=== PATIENT | female | born 1935 | race African-American/Black ===

== ENCOUNTER → 2016-07-30 | Outpatient (CLI) | payer OTHER ==
[2015-09-03 10:10] VITALS: BP 176/74
--- NOTE | 2016-07-30 12:20 | CT ---
HISTORY: Hematuria, left flank pain Study: CT abdomen pelvis without contrast Comparison: None Technique: Axial non contrast images with coronal and sagittal reformats. Dose reduction procedures were used with MA/kv adjusted for body size. Findings: The lung bases are clear. The liver is normal in size and configuration. Benign calcified granulomas are present. In the dome of the right lobe of the liver there is a 2.2 x 2.1 centimeter lesion of l ow attenuation which is of uncertain etiology and significance. Hepatic protocol CT with and without contrast is recommended for further evaluation. No opaque stones are visible within the gallbladder . The spleen, adrenal glands, and pancreas are within normal limits to the limitations of an unenhan nighat examination. The kidneys are unobstructed. There is a 4 millimeter nonobstructing right midpole renal calculus present. No left renal calculi are identified. No ureteral calculi are identified. No intraperitoneal or retroperitoneal lymphadenopathy of significance is identified. There are no find ings suggestive of diverticulitis or colitis. The appendix is not identified with absolute certainty however there are no secondary signs of appendicitis present. Examination of the pelvis demonstrate d no evidence for pelvic masses, pelvic fluid, or pelvic lymphadenopathy. No bladder abnormality is identified. No lytic or blastic skeletal lesions are identified. IMPRESSION: 5 millimeter nonobstructing right midpole renal calculus No evidence for obstructing ureteral calculi. 2.2 x 2.1 centimeter lesion in the dome of the right lobe of the liver which will require further ev aluation with hepatic protocol CT with and without contrast. Reported By:
== END ==
LOC: RAD 10:34
PROVIDERS: ATTEND Internal Medicine
DX: R10.84 Generalized abdominal pain (principal); R31.9 Hematuria, unspecified; Z87.448 Personal history of other diseases of urinary system
CPT/HCPCS: 74176

== ENCOUNTER → 2016-08-31 | Outpatient (CLI) | payer OTHER ==
[2015-09-03 10:10] VITALS: BP 176/74
[~2016-08-31] MED LIST: NS 100 ML IV 0 ML IV ONE
[2016-08-31 09:44] LABS: CREATININE 0.6 mg/dL (0.55-1.02)
== END ==
LOC: RAD 09:06
PROVIDERS: ATTEND Internal Medicine
DX: R93.5 Abnormal findings on diagnostic imaging of other abdominal regions, including retroperitoneum (principal)
CPT/HCPCS: 36415; 82565; 84520

== ENCOUNTER → 2016-09-02 | Outpatient (CLI) | payer OTHER ==
[2015-09-03 10:10] VITALS: BP 176/74
--- NOTE | 2016-09-03 09:05 | MRI ---
MRI OF THE ABDOMEN WITHOUT AND WITH IV CONTRAST Clinical indication: Right liver lesion Procedure: Multiplanar multi sequence MRI of the abdomen were obtained with and without the administ ration of intravenous contrast according to standard departmental protocol. Contrast: 15 cc of Omniscan. Comparisons: CT 07/30/2016 Findings: MRI of the abdomen without contrast: No significant iron or fat deposition in the liver or spleen. N o significant ascites. MRI of the abdomen with contrast: Liver and spleen are normal in appearance. Lesion in the right lo be of liver testis peripheral nodular enhancement with progressive filling in. This lesion measures 2.1 cm on series 71, image 11. Gallbladder is present. No gallstones. No filling defects within the common bile duct. No ductal dilatation. Pancreas demonstrates normal T1 signal. No pancreatic sukhjinder s. Adrenal glands are normal. Kidneys demonstrate normal cortical medullary differentiation. No hydr onephrosis. Visualized bowel is unremarkable. No suspicious lymph nodes. Impression: 1. Lesion within the right liver is most consistent with a hemangioma. Reported By:
== END | disposition home or self-care (01) | DRG 316 ==
LOC: RAD 15:02
PROVIDERS: ATTEND Nurse Practitioner Family
DX: D18.09 Hemangioma of other sites (principal); R93.8 Abnormal findings on diagnostic imaging of other specified body structures
CPT/HCPCS: 74182